=== PATIENT | female | born 1965 | race Hispanic/Latino ===

== ENCOUNTER 2021-04-06 11:42 | Emergency (ER) | payer BC ==
[~2021-04-06] VITALS: Ht 162.6 cm; Wt 88.5 kg
[2021-04-06 12:40] LABS: BASOPHILS # (AUTO) 0.1 (0.0-0.1); BASOPHILS % 0.4 % (0.0-1.0); EOSINOPHILS # (AUTO) 0.1 (0.0-0.4); EOSINOPHILS % 0.8 % (0.0-6.0); HEMATOCRIT 48.4 % (34.2-44.1); HEMOGLOBIN 16.2 g/dL (12.0-16.0); LYMPHOCYTES # (AUTO) 2.7 (1.0-3.2); LYMPHOCYTES % 18.1 % (18.0-39.1); MEAN CORPUSCULAR HEMOGLOBIN 28.1 pg (28-32); MEAN CORPUSCULAR HGB CONC 33.5 g/dL (31-35); MEAN CORPUSCULAR VOLUME 83.9 fL (81-99); MONOCYTES # (AUTO) 0.8 (0.2-0.8); MONOCYTES % 5.6 % (4.4-11.3); NEUTROPHILS # (AUTO) 11.2 (2.1-6.9); NEUTROPHILS % 74.6 % (38.7-80.0); PLATELET COUNT 336 x10e3/uL (140-360); RED BLOOD COUNT 5.77 x10e6/uL (3.6-5.1); RED CELL DISTRIBUTION WIDTH 13.3 % (11.7-14.4)
[2021-04-06 12:58] LABS: ALBUMIN 3.8 g/dL (3.5-5.0); ALBUMIN/GLOBULIN RATIO 0.8 (0.8-2.0); ANION GAP 17.2 mmol/L (8-16); CALCIUM 10.5 mg/dL (8.4-10.2); CREATININE, SERUM 0.75 mg/dL (0.57-1.11); POTASSIUM 4.2 mmol/L (3.5-5.1)
[2021-04-06] MEDS ORDERED: SODIUM CHLORIDE 0.9% 1000ML 1,000 ML IV STA (13:05)
[2021-04-06] MEDS ORDERED: MORPHINE SULFATE INJ 4 MG/ML INJ 1ML IV ONE (13:15)
[2021-04-06] MEDS ORDERED: MAGNESIUM/ALUMINUM/SIMETHICONE 30 ML UDC PO ONE (13:15)
[2021-04-06] MEDS ORDERED: ONDANSETRON HCL INJ 2MG/ML 2ML 2 MG/ML VIAL IV ONE (13:15)
[2021-04-06] MEDS ORDERED: SODIUM CHLORIDE 0.9% 50ML 50 ML ONE (13:49)
[2021-04-06] MEDS ORDERED: IOPAMIDOL 370 MG/ML 200 ML INFUS..BTL INJ ONE (13:50)
[2021-04-06 15:42] VITALS: BP 158/73
[2021-04-06] MEDS ORDERED: DICYCLOMINE HCL20 MG PO (16:05)
[2021-04-06] MEDS ORDERED: ZOFRAN4 MG SL (16:05)
[2021-04-07] MEDS ORDERED: LANTUS 3ML100 UNITS/ SC (16:02)
[2021-04-07] MEDS ORDERED: VENLAFAXINE HCL75 M2 PO (16:02)
[2021-04-07] MEDS ORDERED: LISINOPRIL2.5 MG PO (16:02)
[2021-04-07] MEDS ORDERED: METFORMIN HCL500 M2 PO (16:02)
[2021-04-07] MEDS ORDERED: OZEMPIC1 MG/0.75 SC (16:02)
[2021-04-07] MEDS ORDERED: NEURONTIN300 MG PO (16:02)
[2021-04-07] MEDS ORDERED: D3-50 PO (16:02)
[2021-04-07] MEDS ORDERED: HUMALOG KW200 UNIT/1 SC (16:02)
[2021-04-07] MEDS ORDERED: CEPHALEXIN500 MG PO (19:45)
[2021-04-07] MEDS ORDERED: FAMOTIDINE20 MG PO (19:45)
[2021-04-07] MEDS ORDERED: ZOFRAN4 MG SL (19:45)
== END 2021-04-06 15:54 | disposition home or self-care (01) ==
LOC: ER 13:42
DX: R19.7 Diarrhea, unspecified (principal); R10.819 Abdominal tenderness, unspecified site; E11.9 Type 2 diabetes mellitus without complications; Z79.4 Long term (current) use of insulin
CPT/HCPCS: 36415; 74177; 80053; 83690; 85025; 93005; 99284; C9113; J2270; J2405; J7030; Q9967

== ENCOUNTER 2021-04-07 00:13 | Observation (INO) | payer BC ==
[~2021-04-07] VITALS: Ht 162.6 cm; Wt 88.5 kg
[~2021-04-07 00:13] MED LIST: DICYCLOMINE HCL20 MG PO; ZOFRAN4 MG SL
[2021-04-07] MEDS ORDERED: PROMETHAZINE 12.5MG/ NACL 0.9% 12.5 MG/50 ML BAG IV ONE (00:30)
[2021-04-07] MEDS ORDERED: SODIUM CHLORIDE 0.9% 1000ML 1,000 ML IV ONE ×3 (00:30→04:45)
[2021-04-07] MEDS ORDERED: SODIUM CHLORIDE 0.9% 1000ML 1,000 ML IV SCH (00:30)
[2021-04-07] MEDS ORDERED: DICYCLOMINE HCL 20 MG/2 ML VIAL IM ONE (00:30)
[2021-04-07 00:32] LABS: BASOPHILS # (AUTO) 0.1 (0.0-0.1); BASOPHILS % 0.4 % (0.0-1.0); EOSINOPHILS % 0.1 % (0.0-6.0); HEMOGLOBIN 15.2 g/dL (12.0-16.0); LYMPHOCYTES # (AUTO) 1.2 (1.0-3.2); MEAN CORPUSCULAR HEMOGLOBIN 27.8 pg (28-32); MEAN CORPUSCULAR VOLUME 84.2 fL (81-99); MONOCYTES # (AUTO) 0.6 (0.2-0.8); MONOCYTES % 3.3 % (4.4-11.3); NEUTROPHILS # (AUTO) 14.8 (2.1-6.9); NEUTROPHILS % 88.9 % (38.7-80.0); PLATELET COUNT 322 x10e3/uL (140-360); RED BLOOD COUNT 5.46 x10e6/uL (3.6-5.1); RED CELL DISTRIBUTION WIDTH 13.5 % (11.7-14.4)
[2021-04-07 00:47] LABS: AMYLASE 75 U/L (25-125); CREATINE KINASE 19 IU/L (29-168); LIPASE 139 U/L (8-78)
[2021-04-07 00:50] LABS: ALBUMIN 3.3 g/dL (3.5-5.0); ALBUMIN/GLOBULIN RATIO 0.8 (0.8-2.0); ANION GAP 18.4 mmol/L (8-16); CALCIUM 9.4 mg/dL (8.4-10.2); CREATININE, SERUM 0.81 mg/dL (0.57-1.11); POTASSIUM 4.4 mmol/L (3.5-5.1)
[2021-04-07] MEDS: SODIUM CHLORIDE 0.9% 1000ML 1,000 ML IV SCH ×2 (02:32→16:37)
[2021-04-07] MEDS ORDERED: SODIUM CHLORIDE 0.9% 1000ML 1,000 ML ONE (03:33)
[2021-04-07] MEDS ORDERED: ONDANSETRON HCL INJ 2MG/ML 2ML 2 MG/ML VIAL IV PRN ×2 (05:00→12:15)
[2021-04-07] MEDS ORDERED: MORPHINE SULFATE INJ 4 MG/ML INJ 1ML IV PRN (05:15)
[2021-04-07 05:32] LABS: CLARITY,URINE HAZY (CLEAR); COLOR,URINE YELLOW (YELLOW)
[2021-04-07 05:33] LABS: KETONES,URINE >=160 (NEGATIVE); LEUKOCYTE ESTERASE ,URINE NEGATIVE (NEGATIVE); NITRITE,URINE NEGATIVE (NEGATIVE); PROTEIN,URINE DIPSTICK NEGATIVE (NEGATIVE); URINE UROBILINOGEN 0.2 mg/dL (0.2 - 1)
[2021-04-07 05:50] LABS: BACTERIA,URINE MANY /HPF; EPITHELIAL CELLS,URINE MANY /LPF; RBC,URINE 0-5 /HPF (0-5); WBC,URINE (MAN) 0-5 /HPF (0-5)
[2021-04-07 11:13] LABS: BASOPHILS % 0.4 % (0.0-1.0); EOSINOPHILS # (AUTO) 0.1 (0.0-0.4); EOSINOPHILS % 0.7 % (0.0-6.0); HEMATOCRIT 36.2 % (34.2-44.1); HEMOGLOBIN 11.5 g/dL (12.0-16.0); LYMPHOCYTES # (AUTO) 1.8 (1.0-3.2); LYMPHOCYTES % 25.4 % (18.0-39.1); MEAN CORPUSCULAR HEMOGLOBIN 27.5 pg (28-32); MEAN CORPUSCULAR HGB CONC 31.8 g/dL (31-35); MEAN CORPUSCULAR VOLUME 86.6 fL (81-99); MONOCYTES # (AUTO) 0.6 (0.2-0.8); MONOCYTES % 7.9 % (4.4-11.3); NEUTROPHILS # (AUTO) 4.5 (2.1-6.9); NEUTROPHILS % 65.2 % (38.7-80.0); PLATELET COUNT 192 x10e3/uL (140-360); RED BLOOD COUNT 4.18 x10e6/uL (3.6-5.1); RED CELL DISTRIBUTION WIDTH 13.8 % (11.7-14.4)
[2021-04-07 11:52] LABS: AMYLASE 34 U/L (25-125); LIPASE 71 U/L (8-78)
[2021-04-07 11:54] LABS: ALBUMIN 2.5 g/dL (3.5-5.0); ALBUMIN/GLOBULIN RATIO 0.8 (0.8-2.0); ANION GAP 9.3 mmol/L (8-16); CALCIUM 7.3 mg/dL (8.4-10.2); CREATININE, SERUM 0.67 mg/dL (0.57-1.11); POTASSIUM 4.3 mmol/L (3.5-5.1)
[2021-04-07] MEDS ORDERED: DOCUSATE SODIUM 100 MG CAP PO PRN (12:15)
[2021-04-07] MEDS ORDERED: CEFTRIAXONE 1 GM in SODIUM CHLORIDE 0.9% 50ML 50 ML IV SCH (12:15)
[2021-04-07] MEDS ORDERED: ZOLPIDEM TARTRATE 5 MG TAB PO PRN (12:15)
[2021-04-07] MEDS: DICYCLOMINE HCL 20 MG TAB PO SCH ×3 (13:03→18:11)
[2021-04-07 13:50] VITALS: BP 105/63
[2021-04-07 14:10] VITALS: BP 105/63
[2021-04-07] MEDS ORDERED: HUMALOG KW200 UNIT/1 SC (16:02)
[2021-04-07] MEDS ORDERED: NEURONTIN300 MG PO (16:02)
[2021-04-07] MEDS ORDERED: LISINOPRIL2.5 MG PO (16:02)
[2021-04-07] MEDS ORDERED: D3-50 PO (16:02)
[2021-04-07] MEDS ORDERED: LANTUS 3ML100 UNITS/ SC (16:02)
[2021-04-07] MEDS ORDERED: OZEMPIC1 MG/0.75 SC (16:02)
[2021-04-07] MEDS ORDERED: METFORMIN HCL500 M2 PO (16:02)
[2021-04-07] MEDS ORDERED: VENLAFAXINE HCL75 M2 PO (16:02)
[2021-04-07] MEDS ORDERED: FAMOTIDINE 20 MG TAB PO SCH (16:30)
[2021-04-07 16:45] VITALS: BP 106/57
[2021-04-07] MEDS ORDERED: ZOFRAN4 MG SL (19:45)
[2021-04-07] MEDS ORDERED: CEPHALEXIN500 MG PO (19:45)
[2021-04-07] MEDS ORDERED: FAMOTIDINE20 MG PO (19:45)
== END 2021-04-08 04:15 | disposition home or self-care (01) ==
LOC: ER 00:24 → ERHOLD 01:30 → MED/SURG 13:52
PROVIDERS: ADMIT Internal Medicine; ATTEND Internal Medicine
DX: K85.90 Acute pancreatitis without necrosis or infection, unspecified (principal); E87.1 Hypo-osmolality and hyponatremia; E86.0 Dehydration; K76.0 Fatty (change of) liver, not elsewhere classified; N39.0 Urinary tract infection, site not specified; R74.01 Elevation of levels of liver transaminase levels; E66.9 Obesity, unspecified; Z68.33 Body mass index [BMI] 33.0-33.9, adult
CPT/HCPCS: 36415; 80053; 81001; 82150; 82550; 82553; 82948; 83690; 84484; 85025; 93005; 99284; C9113; G0378 ×2; J0500; J0696; J2270; J2405; J2550; J7030